=== PATIENT | female | born 1950 | race Caucasian/White ===

== ENCOUNTER 2018-03-27 07:08 | Day surgery (SDC) ==
[~2018-03-27 07:08] MED LIST: BRIMONIDINE TARTRATE 0.2% OPTH SOL OP PRN; BSS WITH EPINEPHRINE OP ONE; DEX-MOXI-KETOR OPTH INJ 1/0.5/0.4 MG/ML IO ONE; LIDOCAINE 1% 20 ML MDV ID STA; LIDOCAINE 1%/PHENYLEPHRINE 1.5% BSS (SURGERY) INTRAOCULA ONE; ZOFRAN 4 MG/2 ML IVP ONE
[2018-03-27] MEDS: BETADINE OPTH PREP OP PRN ×2 (07:25→08:13)
[2018-03-27] MEDS: CYCLOGYL 2% OPTH OP PRN ×3 (07:25→07:35)
[2018-03-27] MEDS: TETRACAINE 0.5% UNIT-DOSE OP PRN ×2 (07:25→08:13)
[2018-03-27 07:35] VITALS: TEMP 97.4
[2018-03-27] MEDS ORDERED: AK-DILATE 10% OPTH SOL OP ONE (07:45)
[2018-03-27] MEDS ORDERED: SUBLIMAZE ONE (08:10)
[2018-03-27] MEDS ORDERED: VERSED ONE (08:10)
[2018-03-27 13:25] VITALS: BP 132/56
== END 2018-03-27 08:45 | disposition home or self-care (01) ==
LOC: SURG 07:08
PROVIDERS: ATTEND Ophthalmology
DX: H25.12 Age-related nuclear cataract, left eye (principal)

== ENCOUNTER 2018-04-10 06:24 | Day surgery (SDC) ==
[2018-04-10] MEDS: BETADINE OPTH PREP OP PRN ×2 (06:40→07:08)
[2018-04-10] MEDS: TETRACAINE 0.5% UNIT-DOSE OP PRN ×2 (06:40→07:06)
[2018-04-10] MEDS: CYCLOGYL 2% OPTH OP PRN ×3 (06:41→06:51)
[2018-04-10] MEDS ORDERED: LIDOCAINE 1% 20 ML MDV ID ONE (06:45)
[2018-04-10 06:48] VITALS: TEMP 97.4
[2018-04-10] MEDS ORDERED: ZOFRAN 4 MG/2 ML IVP ONE (06:50)
[2018-04-10] MEDS ORDERED: LIDOCAINE 1%/PHENYLEPHRINE 1.5% BSS (SURGERY) INTRAOCULA ONE (06:50)
[2018-04-10] MEDS ORDERED: DEX-MOXI-KETOR OPTH INJ 1/0.5/0.4 MG/ML IO ONE (06:50)
[2018-04-10] MEDS ORDERED: BSS WITH EPINEPHRINE OP ONE (06:50)
[2018-04-10] MEDS ORDERED: BRIMONIDINE TARTRATE 0.2% OPTH SOL OP PRN (06:50)
[2018-04-10] MEDS ORDERED: AK-DILATE 10% OPTH SOL OP PRN (06:50)
[2018-04-10] MEDS ORDERED: SUBLIMAZE ONE (07:00)
[2018-04-10] MEDS ORDERED: VERSED ONE (07:00)
[2018-04-12 11:10] VITALS: BP 112/67
== END 2018-04-10 07:55 | disposition home or self-care (01) ==
LOC: SURG 06:24
PROVIDERS: ATTEND Ophthalmology
DX: H25.11 Age-related nuclear cataract, right eye (principal)